=== PATIENT | female | born 1975 | race Caucasian/White ===

== ENCOUNTER 2023-10-06 08:57 | Emergency (ER) | payer SELFPAY ==
[~2023-10-06] VITALS: Ht 170.2 cm; Wt 68.5 kg
[2023-10-06 09:05] VITALS: BP 104/68; PULSE 84; RESP 16; TEMP 97.3; O2SAT 100
[2023-10-06] MEDS ORDERED: PRED20TA5 PO (10:46)
[2023-10-06] MEDS ORDERED: DIPH25TA53 PO (10:46)
== END 2023-10-06 10:54 | disposition home or self-care (01) ==
LOC: MED 08:57
DX: R21 Rash and other nonspecific skin eruption (principal); L29.9 Pruritus, unspecified; Z98.890 Other specified postprocedural states
CPT/HCPCS: 99283